=== PATIENT | female | born 2000 | race Two or more races ===

== ENCOUNTER 2024-09-24 17:35 | Observation (INO) | payer MEDICAID, SELFPAY ==
--- NOTE | 2024-09-24 17:35 | XR_ITS ---
Examination: Complete OB ultrasound greater than 14 weeks Date and time of exam: September 24, 2024 1902 hrs. Indications: Diagnosis intrauterine growth retardation Findings: Viable intrauterine single fetus with single amniotic sac presentation cephalic Cardiac motion 157 BPM Placenta fundal grade 2. Umbilical cord insertion 3 vessel seen. Amniotic fluid index 9.9 cm spine maternal left Cervix 4.3 cm Ovaries obscured by bowel gas. Composite estimated gestational age based on BPD, head circumference, abdominal circumference, femur length is 31 weeks 4 days Estimated weight 1791 g. Survey of intracranial anatomy, spinal anatomy, abdominal anatomy, four-chamber heart performed with no abnormalities identified. Impression: Viable intrauterine gestation cephalic presentation Estimated gestational age 31 weeks 4 days.
--- NOTE | 2024-09-24 17:35 | XR_ITS ---
Examination: Biophysical profile, ultrasound Date and time of exam: September 24, 2024 1912 hrs. Indications: Diagnosis intrauterine growth retardation Technique: Multiple transabdominal sonographic images of the pelvis abdomen obtained. Attention is directed to the breathing movement, gross body movement, amniotic fluid volume and tone. Findings: Amniotic fluid index 9.5 cm Total biophysical profile is 8 of 8. breathing movement is 2. Gross body movement is 2. tone is 2. Qualitative amniotic fluid volume is 2 Impression: Biophysical profile is 8 of 8.
[2024-09-24 17:37] VITALS: RESP 16; TEMP 37; O2SAT 98; BMI 24.7
== END 2024-09-24 19:36 | disposition home or self-care (01) ==
LOC: CNST 18:17 → S4SX 19:25
PROVIDERS: Admitting Provider Advanced Practice Midwife; Referring Provider Advanced Practice Midwife; Visit Provider Advanced Practice Midwife
DX: O36.5930 Maternal care for other known or suspected poor fetal growth, third trimester, not applicable or unspecified (principal); Z3A.31 31 weeks gestation of pregnancy
CPT/HCPCS: 59899; 76805; 76819; G0378

== ENCOUNTER 2024-10-12 10:08 | Outpatient (RCR) | payer MEDICAID, SELFPAY ==
--- NOTE | 2024-10-05 10:55 | XR_ITS ---
Examination: Biophysical profile, ultrasound Date and time of exam: October 05, 2024 1056 hours INDICATIONS: Diagnosis intrauterine growth retardation Technique: Multiple transabdominal sonographic images of the pelvis abdomen obtained. Attention is directed to the breathing movement, gross body movement, amniotic fluid volume and tone. Findings: Amniotic fluid index 16.3 cm Total biophysical profile is 8 of 8. breathing movement is 2. Gross body movement is 2. tone is 2. Qualitative amniotic fluid volume is 2 Impression: Biophysical profile is 8 of 8.
[2024-10-05 12:39] VITALS: BP 116/69; PULSE 81; RESP 16; TEMP 36.9
--- NOTE | 2024-10-12 10:34 | XR_ITS ---
Examination: Biophysical profile, ultrasound Date and time of exam: October 12, 2024 1046 hours INDICATIONS: Diagnosis severe intrauterine growth retardation Technique: Multiple transabdominal sonographic images of the pelvis abdomen obtained. Attention is directed to the breathing movement, gross body movement, amniotic fluid volume and tone. Findings: Amniotic fluid index 17.8 cm Total biophysical profile is 8 of 8. breathing movement is 2. Gross body movement is 2. tone is 2. Qualitative amniotic fluid volume is 2 Impression: Biophysical profile is 8 of 8.
[2024-10-12 11:24] VITALS: BP 113/67; PULSE 71; RESP 16; TEMP 36.7
== END 2024-10-12 23:59 | disposition home or self-care (01) ==
LOC: S4S1 10:08
PROVIDERS: PCP Advanced Practice Midwife; Referring Provider Advanced Practice Midwife; Visit Provider Advanced Practice Midwife
DX: O26.843 Uterine size-date discrepancy, third trimester (principal); O09.93 Supervision of high risk pregnancy, unspecified, third trimester; Z3A.34 34 weeks gestation of pregnancy
CPT/HCPCS: 59025; 76819

== ENCOUNTER 2024-11-03 14:44 | Outpatient (CLI) | payer MEDICAID, SELFPAY ==
[2024-11-03 14:44] VITALS: BP 123/65; PULSE 80; RESP 16; RESP 98; TEMP 36.7; BMI 25.9
[2024-11-03 15:07] VITALS: BP 123/65; PULSE 80
== END 2024-11-03 15:25 | disposition home or self-care (01) ==
LOC: S4S1 14:47 → S4SX 14:48
PROVIDERS: Referring Provider Obstetrics & Gynecology; Visit Provider Obstetrics & Gynecology
DX: Z34.83 Encounter for supervision of other normal pregnancy, third trimester (principal); Z36.9 Encounter for antenatal screening, unspecified; Z3A.37 37 weeks gestation of pregnancy
CPT/HCPCS: 59025

== ENCOUNTER 2024-11-07 18:09 | Observation (INO) | payer MEDICAID, SELFPAY ==
[2024-11-07] VITALS (7 sets, daily range): BP systolic 120–121; BP diastolic 57–76; PULSE 91–100; RESP 16; TEMP 36.6; O2SAT 96–97; BMI 26.1
--- NOTE | 2024-11-07 18:15 | XR_ITS ---
Examination: Complete OB ultrasound greater than 14 weeks Date and time of exam: November 07, 2024 at 1833 hrs. Indications: Diagnosis intrauterine growth retardation, back pain pelvic pain one week, labor induction today Findings: Viable intrauterine single fetus with single amniotic sac presentation cephalic spine maternal right Cardiac motion 132 BPM Placenta fundal grade 2 Umbilical cord insertion 3 vessel seen Amniotic fluid index 9.5 cm Cervix 2.9 cm Right ovary 3.4 cm arterial flow Left ovary obscured by bowel gas Composite estimated gestational age based on BPD, head circumference, abdominal circumference, femur length is 36 weeks 5 days Estimated weight 3055 g. Survey of intracranial anatomy, spinal anatomy, abdominal anatomy, four-chamber heart performed with no abnormalities identified. Impression: Viable intrauterine gestation cephalic presentation Estimated gestational age 36 weeks 5 days Estimated weight 3055 g.
== END 2024-11-07 20:14 | disposition home or self-care (01) ==
PROVIDERS: Admitting Provider Obstetrics & Gynecology; PCP Family Medicine; Visit Provider Obstetrics & Gynecology
DX: O36.5930 Maternal care for other known or suspected poor fetal growth, third trimester, not applicable or unspecified (principal); Z3A.36 36 weeks gestation of pregnancy
CPT/HCPCS: 59899; 76805; G0378

== ENCOUNTER 2024-11-11 20:18 | Inpatient (IN) | payer MEDICAID, SELFPAY ==
[2024-11-11] VITALS (15 sets, daily range): BP systolic 104–130; BP diastolic 68–85; PULSE 69–98; RESP 16; TEMP 36.7–37.7; O2SAT 98–99; BMI 27.0
[2024-11-11 20:49] LABS: ROM Kit Lot # 578010271; ROM Swab Mixed By: IWU; Rupture of Fetal Membranes Positive (Negative); Swb Mxed in Solvent 1 min? Yes
[2024-11-11] MEDS: RINGERS LACTATED 1000 ML 1,000 ML 100 ML IV (21:57)
[2024-11-11 22:47] LABS: Basophils % (Auto) 0 % (0-2.5); Eosinophils # (Auto) 0.1 Thou/mm3 (0.0-0.5); Eosinophils % (Auto) 0 % (0-10); Hematocrit 32.9 % (36.0-46.0); Hemoglobin 10.6 g/dL (12.0-16.0); Immature Granulocytes % (Auto) 0 % (0-0); Immature Granulocytes Auto 0.04 Thou/mm3 (0.00-0.00); Lymphocytes # (Auto) 2.7 Thou/mm3 (1.0-4.8); Lymphocytes % (Auto) 21 % (10-50); Mean Corpuscular HGB Conc 32.2 g/dl (31.0-37.0); Mean Corpuscular Hemoglobin 23.6 pg (25.0-35.0); Mean Corpuscular Volume 73 fL (80-100); Monocytes # (Auto) 0.8 Thou/mm3 (0.0-0.8); Monocytes % (Auto) 6 % (0-12); Neutrophils # (Auto) 9.1 Thou/mm3 (1.8-7.7); Neutrophils % (Auto) 72 % (37-80); Nucleated Red Blood Cell % 0 /100 WBC (0); Platelet Count 207 Thou/mm3 (140-440); RDW Standard Deviation 38.6 fL (36.4-46.3); Red Blood Count 4.49 Miln/mm3 (4.00-5.20); White Blood Count 12.7 Thou/mm3 (3.6-11.0)
[2024-11-11 23:33] LABS: Syphilis Nonreactive (Nonreactive)
[2024-11-12] VITALS (117 sets, daily range): BP systolic 101–197; BP diastolic 61–96; PULSE 64–121; RESP 16–18; TEMP 36.4–36.7; O2SAT 97–100
--- NOTE | 2024-11-12 00:32 | ESHP_ITS ---
Documentation for date of: 11/12/24 OB Labor/Induct. HPI History of Present Illness Chief complaint: leakage of fluid : 2 Para: 1 Term pregnancies: 1 pregnancies: 0 Living children: 0 History of Abortions: Spontaneous and Elective: 0 History of Vaginal deliveries: 1 History of sections: No History of : No Date of last menstrual period: 02/12/24 MAURISIO: 11/18/24 Gestational Age (weeks): 39 Gestational Age (days): 0 Gestational age based on last menstrual period: 39 History of present illness: Patient presents for loss of fluid, clear, that occurred at approximately 1900 on 11/11/24. Occasional but non-painful ctx. No vaginal bleeding. Normal movement. No fevers/chills. History of Present Dating criteria: based on LMP only Adequate Care: No Ultrasounds: abnormal US findings (IUGR noted at 29 weeks (3.4%ile), subsequent growth scans showed eventual resolution with normal EFW on 11/07) Obstetrical complications: growth restriction (resolved) and other (insufficient care, Rh negative (received Rhogam at 29wk)) Labs Maternal Blood Type: O Neg Labs: Positive: Rubella Titre and Negative: RPR, Hepatitis B, HIV, Chlamydia and Gonorrhea Review of Systems Review of Systems Narrative Review of Systems: Review of Systems Systems Reviewed: All systems reviewed, normal except as documented Constitutional Constitutional: Denies body ache(s), Denies chills, Denies fever(s) and Denies headache(s) ENT Ears, Nose, Mouth, and Throat: Denies headache(s) and Denies vertigo Cardiovascular Cardiovascular: Denies chest pain, Denies palpitations, Denies dyspnea and Denies syncope Respiratory Respiratory: Denies cough, Denies dyspnea Gastrointestinal Gastrointestinal: Denies nausea and Denies vomiting Neurologic Neurologic: Denies convulsions, Denies headache(s), Denies other visual disturbances, Denies syncope and Denies vertigo Past Medical History Family History OTHER FAMILY HX: non-contributory Surgical History SURGICAL: Negative Section OTHER SURGICAL HX: denies any Social History SOCIAL: No ETOH, illicit drug use or tobacco. Past Medical History Comments PMH COMMENT: Benign PMhx Meds Home Medications and Allergies Home Medications ?Medication ?Instructions ?Recorded ?Confirmed ?Type prenat.vits,aminah,tng-lbph-pofjs 1 tab PO QDAY 08/12/22 11/11/24 History Allergies Allergy/AdvReac Type Severity Reaction Status Date / Time No Known Allergies Allergy Verified 11/11/24 21:00 OB Exam Physical Exam Vital signs: Temp Pulse Resp BP Pulse Ox 97.5 F 89 16 133/86 H 100 11/12/24 00:00 11/12/24 00:30 11/11/24 20:56 11/12/24 00:30 11/12/24 00:30 Detailed Labor and Delivery Exam Dilation (cm): 3 Effacement (%): 60 Cervix position: mid station: -2 Consistency: soft Presentation: Vertex Membranes: ruptured Amniotic fluid: clear monitor accelerations: 15x15 monitor decelerations: None terminal system operator variability: Moderate (11-25) Contraction frequency (min): q5-7min OB Results Labs 11/11/24 21:18 Labs: Short CBC 11/11/24 Range/Units 21:18 WBC 12.7 H (3.6-11.0) Thou/mm3 Hgb 10.6 L (12.0-16.0) g/dL Hct 32.9 L (36.0-46.0) % Plt Count 207 (140-440) Thou/mm3 Impressions Impression: Examination: Complete OB ultrasound greater than 14 weeks Date and time of exam: November 07, 2024 at 1833 hrs. Indications: Diagnosis intrauterine growth retardation, back pain pelvic pain one week, labor induction today Findings: Viable intrauterine single fetus with single amniotic sac presentation cephalic spine maternal right Cardiac motion 132 BPM Placenta fundal grade 2 Umbilical cord insertion 3 vessel seen Amniotic fluid index 9.5 cm Cervix 2.9 cm Right ovary 3.4 cm arterial flow Left ovary obscured by bowel gas Composite estimated gestational age based on BPD, head circumference, abdominal circumference, femur length is 36 weeks 5 days Estimated weight 3055 g. Survey of intracranial anatomy, spinal anatomy, abdominal anatomy, four-chamber heart performed with no abnormalities identified. Impression: Viable intrauterine gestation cephalic presentation Estimated gestational age 36 weeks 5 days Estimated weight 3055 g. OB Assessment & Plan Assessment and Plan (1) Rupture of membranes with clear amniotic fluid: Status: Acute Assessment and plan: Marisela is a 23yo with SIUP at 30&0wk presenting with SROM, clear at 1900 on 3/5/25. Regular, non-painful contractions, SCE: /-2. Vitals wnl, benign exam. Reassuring assessment. Care with [facility], incomplete records available in chart were reviewed. Patient endorses normal glucose testing. PMhx/ complicated by: Insufficient care IUGR that resolved by 11/07/24 growth scan: 3055g Rh negative, received Rhogam Plan: -Admit to L&D -Establish IV, routine labs -CEFM -Clear liquid diet -Pediatric Registered Nurse/consent re: -GBS status: negative -Anticipate -Safe to proceed (2) Insufficient care: Status: Acute (3) Rh negative state in antepartum period: Status: Acute (2) Insufficient care Qualifiers: Trimester: third trimester Qualified Code(s): O09.33 - Supervision of with insufficient care, third trimester
--- NOTE | 2024-11-12 00:42 | PD.LDPN ---
Documentation for date of: 11/12/24 OB Labor Progress Note Pelvic Exam Dilation (cm): 6 Effacement (%): 80 station: -2 Contractions Contraction frequency: q3-4min Status status: Category l Assessment and Plan Comments: Patient starting to feel contractions a bit more now. Plans for epidural. Vitals wnl, afebrile Cat I FHRT Ctx q3-4min SCE: 6/80/-2, AROM of forebag well tolerated, clear fluid Plan for expectant management at this time since progressing well on her own IVF bolus for epidural Will continue to closely monitor CEFM Safe to proceed Elisa Cantu MD
[2024-11-12] MEDS: RINGERS LACTATED 1000 ML 1,000 ML 100 ML IV ×2 (02:06→04:22)
[2024-11-12 02:21] LABS: Amphetamine/Metham Scrn,Ur OB Negative (Negative); Benzoylecgonine Screen, Ur OB Negative (Negative); Opiate Screen,Urine OB Negative (Negative); THC Screen,Urine OB Negative (Negative)
[2024-11-12] MEDS: OXYTOCIN in NS 20 units 20 UNIT/1,000 ML BAG 125 UNIT IV (04:44)
[2024-11-12] MEDS: BENZO/LANO/ALOE (Dermoplast) 60 GM CAN 1 SPRAY TOP (04:47)
[2024-11-12] MEDS: MINERAL OIL 30 ML UDC TOP (05:20)
--- NOTE | 2024-11-12 07:39 | PD.LDDELS ---
Data ([facility]) Data Hx Section: No : 2 Para: 1 Term: 1 : 0 : 1 Delivery Data (H[facility]andez) Labor Data ROM Date: 11/11/24 ROM Time: 19:40 Rupture Type: SROM Amniotic Fluid: Clear Delivery Data Labor Onset Stage 1 Date: 11/11/24 Labor Onset Stage 1 Time: 19:40 Labor Onset Stage 2 Date: 11/12/24 Labor Onset Stage 2 Time: 04:25 Delivery Date: 11/12/24 Delivery Time: 04:38 Placenta Delivery Date: 11/12/24 Placenta Delivery Time: 04:45 Delivered by: Elisa Cantu Delivery nurse: Crystal Jean Baptiste Other staff at delivery: 2nd Nurse Other staff at delivery: Michelle Heller Delivery Method Delivery: Vaginal Delivery Type: Spontaneous Presentation: Vertex Anesthesia Type Primary Anesthesia: Epidural Placenta Placenta Delivery: Spontaneous EBL Estimated blood loss (ml): 150 Additional Procedures Marisela is a 23yo s/p uncomplicated at 39&1wk after presenting with SROM, delivering at 0438 on 11/12/2024. On presentation, SCE was 3cm. She progressed without augmentation to C/C/0 at which point she began pushing. She was able to receive an epidural. With good maternal pushing efforts, infant's head delivered OA and restituted MICHAEL. Left anterior shoulder delivered easily followed by posterior shoulder and corpus. Infant had spontaneous cry and was vigorous. Apgars 8/9. placed on maternal abdomen where nose/mouth were suctioned and infant dried/stimulated. After approximately 1 minute, cord was clamped x2 and cut by patient's mother. Cord blood collected for typing. With fundal massage and cord traction, placenta delivered spontaneously and intact with 3 vessel centrally inserted cord. Bimanual massage performed and IV pitocin given per protocol with fundus then firm at u-4cm and hemostasis noted. Inspection of perineum and vagina revealed no lacerations. All counts correct x2. Mom and were doing well when I left the room. Elisa Cantu MD [place] Data ([facility]andez) Data Gender: Male Infant Weight Grams: 2920 1 Minute Total: 8 5 Minute Total: 9
[2024-11-12] MEDS: DOCUSATE SOD 100 MG CAPSULE PO ×2 (08:33→21:48)
[2024-11-12] MEDS: PRENATAL VITAMIN/FE FUM/FA TABLET 1 TAB PO (08:33)
[2024-11-12 10:44] LABS: Basophils % (Auto) 0 % (0-2.5); Eosinophils % (Auto) 0 % (0-10); Hematocrit 32.6 % (36.0-46.0); Hemoglobin 10.5 g/dL (12.0-16.0); Immature Granulocytes % (Auto) 1 % (0-0); Lymphocytes # (Auto) 2.8 Thou/mm3 (1.0-4.8); Lymphocytes % (Auto) 13 % (10-50); Mean Corpuscular HGB Conc 32.2 g/dl (31.0-37.0); Mean Corpuscular Hemoglobin 23.7 pg (25.0-35.0); Mean Corpuscular Volume 74 fL (80-100); Monocytes # (Auto) 1.5 Thou/mm3 (0.0-0.8); Monocytes % (Auto) 7 % (0-12); Neutrophils # (Auto) 17.1 Thou/mm3 (1.8-7.7); Neutrophils % (Auto) 79 % (37-80); Nucleated Red Blood Cell % 0 /100 WBC (0); Platelet Count 175 Thou/mm3 (140-440); RDW Standard Deviation 39.1 fL (36.4-46.3); Red Blood Count 4.43 Miln/mm3 (4.00-5.20); White Blood Count 21.5 Thou/mm3 (3.6-11.0)
--- NOTE | 2024-11-12 15:47 | PC.NURSE ---
made aware of wbcs 12.7-21.5, no new orders
[2024-11-13 01:35] VITALS: BP 120/80; PULSE 74; RESP 17; TEMP 36.7; O2SAT 98
[2024-11-13 04:16] VITALS: BP 105/68; PULSE 75; RESP 19; TEMP 36.7; O2SAT 97
[2024-11-13] MEDS: IBUPROFEN TAB 400 MG TABLET 800 MG PO (07:50)
[2024-11-13] MEDS: DOCUSATE SOD 100 MG CAPSULE PO (07:51)
[2024-11-13] MEDS: PRENATAL VITAMIN/FE FUM/FA TABLET 1 TAB PO (07:51)
[2024-11-13 08:00] VITALS: BP 123/80; PULSE 62; RESP 19; TEMP 36.7; O2SAT 99
--- NOTE | 2024-11-13 10:14 | PC.NURSE ---
Cleared by adoption social worker
[2024-11-13 11:40] VITALS: BP 121/83; PULSE 76; RESP 18; TEMP 36.7; O2SAT 97
[2024-11-13 11:49] VITALS: BP 114/79; PULSE 84; RESP 18; TEMP 36.7; O2SAT 97
--- NOTE | 2024-11-13 11:50 | PC.SS ---
APIGEE DEVELOPER conducted bedside contact with the patient to address nursing referral indicating patient possessed poor .? APIGEE DEVELOPER introduced self and role.? APIGEE DEVELOPER discussed basis of referral.? Patient confirmed inconsistency with OB appointments.? Patient cited re-scheduling of health educator appointments prior to OB appointment.? In addition patient identified lack of transportation as barrier.? Upon completed appointment with health educator component, patient able to establish OB appointments.? OB services provided by Anyi Carter, OB.? Infant, Dk; is the patient?s second child.? Infant delivered naturally.? Patient?s other child is 2 years old.? FOB is Roge Suresh and will be involved in the rearing of the .? Patient is aligned with WIC, SNAP and TANF.? Patient denies history of alcohol/drug use.? Patient denies CWS intervention.? Patient denies episodes of domestic violence.? Jayashree Francois provided OB services.? Patient states consistency with OB appointments.? Patient plans on combo feeding infant.? Patient has access to appropriate supplies and equipment.? FOB will provide transportation upon discharge.? Patient describes possessing support system consisting of spouse and family.? No further intervention required at this time, forensic social worker will be available to address any further concerns.? APIGEE DEVELOPER updated bedside nurse.?
[2024-11-13 11:51] VITALS: BP 114/79; PULSE 84; RESP 18; TEMP 36.8; O2SAT 98
--- NOTE | 2024-11-13 17:04 | ESDS_ITS ---
DS: Providers Provider Date of admission: 11/11/24 21:17 Primary care physician: Physician No Primary/Family Admitting Provider: Elisa Cantu MD Attending Provider on Admission: Elisa Cantu MD Consults: 11/12/24 04:49 Referral Routine Comment: Attending Provider on DC: Guerline Jeter MD ([facility]) Discharging Provider: Guerline Jeter MD ([facility]) Anticipated date of discharge: 11/13/24 DS: Diagnosis Discharge Diagnosis (1) Term delivered: Status: Acute Assessment & Plan: Patient doing well. No complications . Vital signs and labs stable. Discharge home. Problem List Completed Was Problem List Reviewed/Reconciled?: Yes Summary/Hosp Course Brief History: Patient presents for loss of fluid, clear, that occurred at approximately 1900 on 11/11/24. Occasional but non-painful ctx. No vaginal bleeding. Normal movement. No fevers/chills. Peripartum Data Delivery Method: Normal Vaginal Delivery Episiotomy Description: None Laceration Description: no complications: none Status at Discharge Functional status at discharge: independent ambulation Overall status at discharge: patient is progressing back to baseline Time Spent with Patient Time attestation: Total time spent providing and/or coordinating discharge services: Time spent: Less than 30 minutes Specific discharge activities: Pelvic rest. No intercourse tampons or douching x 6 weeks. Exam Vital Signs Temp Pulse Resp BP Pulse Ox O2 Del Method 98.2 F 84 18 114/79 98 Room Air 11/13/24 11:51 11/13/24 11:51 11/13/24 11:51 11/13/24 11:51 11/13/24 11:51 11/13/24 11:51 Narrative Exam Patient alert and oriented x 3 she is walking around the room holding baby. Constitutional Constitutional: no acute distress Routine Cardiovascular Exam Cardiovascular: Present RRR Routine Abdominal Exam Abdominal: Present soft and normoactive bowel sounds Routine Skin Exam Skin: Present intact, dry and warm Routine Psychiatric Exam Psychiatric: Present normal affect and normal thought process Discharge Plan Plan Patient Disposition: HOME (Self Care) Disposition Comment: stable Patient condition on transfer: Stable Prescriptions/Referrals Prescriptions/Med Rec: New docusate sodium 100 mg Capsule 100 mg PO BID 10 Days Qty: 20 0RF ibuprofen 800 mg tablet 800 mg PO Q8H PRN (Reason: See Comments) 10 Days Qty: 20 0RF Continued prenat.vits,aminah,[id number] Tablet 1 tab PO QDAY Referrals: No Primary/Family,Physician [Primary Care Provider] - Patient/Caregiver Discharge Instructions Discharge Activity: activity as tolerated and other Other Discharge Activity Instructions:: follow up for visit in 4 weeks, call for appointment vaginal rest and no heavy lifting greater than 10 pounds for 6 weeks Other Discharge Diet Instructions: regular Education Materials: After a Vaginal , Breast Care After Print Language: Bangladeshi Activity Restrictions/Additional Instructions: follow up for visit in 4 weeks, call for appointment Stand Alone Forms: [employer] Award Info., Patient Portal Info Letter Discharge Order Discharge Orders: Discharge (Routine); Ordered 11/13/24 Ordered By: Guerline Jeter ([facility]) Planned Discharge Date 11/13/24
== END 2024-11-13 18:35 | disposition home or self-care (01) | DRG 560 ==
LOC: S4SX 11-12 06:18 → S4NX 11-12 08:08
PROVIDERS: Admitting Provider Obstetrics & Gynecology; Visit Provider Obstetrics & Gynecology
DX: O42.02 Full-term premature rupture of membranes, onset of labor within 24 hours of rupture (principal); Z37.0 Single live birth; Z3A.39 39 weeks gestation of pregnancy; O36.5930 Maternal care for other known or suspected poor fetal growth, third trimester, not applicable or unspecified; O26.893 Other specified pregnancy related conditions, third trimester; Z67.41 Type O blood, Rh negative
CPT/HCPCS: 36415; 59025; 80307; 84112; 85025; 85461; 86780; 86850; 86870; 86900; 86901; 94762; J2590; J2790; J2795; J3010; J7120; A9270